=== PATIENT | female | born 1985 | race Caucasian/White ===

== ENCOUNTER 2017-01-02 07:19 | Emergency (ER) | payer BC ==
[~2017-01-02] VITALS: Ht 160 cm; Wt 84.1 kg
[2017-01-02 07:23] VITALS: TEMP 36.9; Ht 160 cm; Wt 84.1 kg
--- NOTE | 2017-01-02 07:50 | EMERGENCY ROOM VISIT NOTE ---
ED Visit Note First contact with patient: 07:28 CHIEF COMPLAINT: knee pain HISTORY OF PRESENT ILLNESS: This 31-year-old female patient presents to the emergency department ambulatory after sustaining an injury to the right knee when she was jumping on a trampoline and heard a very loud snap and had instant pain and swelling in the knee. The patient denies any other injuries besides their knee. The patient admits to swelling and bruising. There is pain diffusely over the knee but worse over the lateral aspect. They rate the pain as sharp and 8/10. The patient states they are not able to walk on it. No numbness or tingling. No previous injuries to this knee. No ankle, foot or hip pain. REVIEW OF SYSTEMS: A 6 system review of systems was completed with positives and pertinent negatives listed in the HPI. ALLERGIES: No known drug allergies MEDICATIONS: None PMH: None SOCIAL HISTORY: The patient lives locally with family PHYSICAL EXAM: Vital Signs: Reviewed Nurse's notes, vital signs stable. GENERAL : This is a 31-year-old female, no acute distress, but appears in pain, well- developed, well-nourished. MENTAL STATUS: Alert, oriented to person place and time, and cooperative. MUSCULOSKELETAL: The right knee is mildly swollen. There is minimal ecchymosis. There is moderate joint effusion present. The patient is tender over the anterior and posterior aspects. There is moderate joint line tenderness. The patella does not subluxate. Range of motion is intact. Strength of the quads and hamstrings is 5/5. Sarthak's is negative. Peewee's and Anterior Drawer tests are painful. There is pain with varus and valgus stressing. The foot and toes are warm and well-perfused. Dorsalis pedis pulse 2+. Sensation to pain and light touch is intact. Capillary refill less than 2 seconds. EMERGENCY DEPARTMENT COURSE: I examined the patient. X-rays of the right knee were reviewed by myself and read by radiology and reveal no fracture or dislocation. The patient was placed in a knee immobilizer under my direction and the position was satisfactory. The patient was instructed on the use of crutches. The patient was discharged home in good condition. The patient sustained a knee injury yesterday. I suspect that the patient has an underlying ligamentous injury. An x-ray was negative for obvious fracture. The patient was under the impression that she could have an emergent MRI of her knee performed. She states that she contacted the Hospital and was told that MRIs are available at this hospital at all times if deemed appropriate. I did advise the patient that although this is true, an emergent MRI may not be appropriate in this case. I advised her that even if we do discover a torn ligament she will not likely have emergency surgery. I advised her that because it would not change her treatment outcome it would be unlikely that her insurance would pay for an emergent MRI. I did offer to order the MRI but could not guarantee her insurance would cover it. She denied going any further at this time. She was given the information for orthopedics and was encouraged to contact their office to schedule a follow-up appointment. She initially declined any pain medication but just prior to discharge she did request pain medication. She was given one Coleharbor and a prescription for Coleharbor. DISCHARGE INSTRUCTIONS: Ice and elevate knee for swelling and pain. Wear knee immobilizer when up and about. Use crutches - minimal weight on foot. Ibuprofen 600 mg every 6 hrs for pain. Follow-up with Orthopedics for further evaluation and treatment - call for appointment. [~ rep ct add3]] RIGHT KNEE 3 VIEWS CLINICAL HISTORY: Right knee pain following injury. COMPARISON: None FINDINGS: Alignment of the right knee is anatomic. No acute fracture Is identified. There is a moderate size right knee joint effusion. There is mild spurring of the patella and the tibial tubercle at the origin and insertion of the patellar tendon. IMPRESSION: 1. No acute fracture. 2. Moderate right knee joint effusion. I reviewed the prescription drug monitoring website. The patient has not had recent narcotic prescriptions filled. Current/Historical Medications Scheduled PRN Hydrocodone/Acetaminophen 5MG/325MG (Coleharbor 5MG/325MG), 1 TABLET PO Q6 PRN for Pain Allergies Coded Allergies: No Known Allergies (Unverified , 01/02/17) Vital Signs Date Time Temp Pulse Resp B/P Pulse Ox O2 Delivery O2 Flow Rate FiO2 01/02/17 09:16 78 18 121/71 97 01/02/17 07:23 36.9 81 16 115/74 98 Room Air Medications Administered Medications (Trade) Dose Ordered Sig/Nithin Route Start Time Stop Time Status Last Admin Dose Admin Acetaminophen/ Hydrocodone Bitart (Coleharbor 5/325 Tab) 1 tab ONE STAT PO 01/02/17 08:59 2/20/17 09:00 DC 01/02/17 09:12 1 TAB Departure Information Impression Primary Impression: Internal derangement of knee Dispostion Home / Self-Care Condition GOOD Prescriptions Hydrocodone/Acetaminophen 5MG/325MG (Coleharbor 5MG/325MG) Tab 1 TABLET PO Q6 Y for Pain, #12 TAB For Initial Treatment Prov: Symone Jolly PA-C 01/02/17 Referrals Bradley Romo (PCP) Ahmet Perez, DO Patient Instructions ED Knee Injury Cruciate Ligament, ED Meniscal Injury Knee Poss, [facility] Additional Instructions Ice and elevate knee for swelling and pain. Wear knee immobilizer when up and about. Use crutches - minimal weight on foot. Ibuprofen 600 mg every 6 hrs for pain. Follow-up with Orthopedics for further evaluation and treatment - call for appointment. . Coleharbor 1 tablet every 6 hours if needed for worse pain. Do not drink or drive while taking Coleharbor and do not take with Tylenol. Work Instructions Return To Work: 3 days
--- NOTE | 2017-01-02 08:16 | DIAGNOSTIC IMAGING REPORT ---
RIGHT KNEE 3 VIEWS CLINICAL HISTORY: Right knee pain following injury. COMPARISON: None FINDINGS: Alignment of the right knee is anatomic. No acute fracture Is identified. There is a moderate size right knee joint effusion. There is mild spurring of the patella and the tibial tubercle at the origin and insertion of the patellar tendon. IMPRESSION: 1. No acute fracture. 2. Moderate right knee joint effusion. Electronically signed by: Naveed Cooper M.D. 01/02/2017 8:15 AM Dictated Date/Time: 01/02/2017 8:14 AM
[2017-01-02] MEDS ORDERED: HYDROCODONE/ACETAMOPHEN 5/325MG TAB PO STA (08:59)
[2017-01-02] MEDS ORDERED: HYDR-5688 PO (09:00)
[2017-01-02 09:16] VITALS: BP 121/71; PULSE 78; O2SAT 97
[2017-02-01] MEDS ORDERED: OXYC-57 PO (09:09)
[2017-02-01] MEDS ORDERED: KETO10TA PO (09:09)
== END 2017-01-02 09:18 | disposition home or self-care (01) ==
LOC: C.EDB 07:21 → C.EDA 09:18
DX: M23.91 Unspecified internal derangement of right knee (principal); X58.XXXA Exposure to other specified factors, initial encounter; Y93.44 Activity, trampolining

== ENCOUNTER → 2017-01-05 | Outpatient (CLI) | payer BC ==
[~2017-01-05] MED LIST: HYDR-5688 PO; KETO10TA PO; OXYC-57 PO
--- NOTE | 2017-01-05 18:04 | DIAGNOSTIC IMAGING REPORT ---
MRI THE RIGHT KNEE NO CONTRAST CLINICAL HISTORY: Right knee pain COMPARISON STUDY: Conventional radiographic study dated 01/02/2017 FINDINGS: Imaging was performed the sagittal, coronal, and axial planes. There is a small suprapatellar joint effusion. The patellar retinacular structures appear intact. The posterior cruciate ligament appears normal. The anterior cruciate ligament is torn. The medial and lateral collateral ligaments appear intact. There is marrow edema within the medial tibial plateau, consistent with a bone bruise. There is a very minimal impaction deformity involving the lateral femoral condyle with subchondral edema. There is a discoid lateral meniscus. No meniscal tears are visualized. IMPRESSION: 1. Minimal impaction deformity involving the lateral femoral condyle with subtle subchondral edema 2. Bone bruise involving the medial tibial plateau 3. Anterior cruciate ligament tear 4. Small joint effusion 5. Discoid lateral meniscus. No meniscal tears are visualized. Electronically signed by: Danie Hackett M.D. 01/05/2017 6:02 PM Dictated Date/Time: 01/05/2017 5:31 PM
== END | disposition home or self-care (01) ==
LOC: C.MRIBC 16:43
PROVIDERS: ATTEND Orthopaedic Surgery
DX: S83.511A Sprain of anterior cruciate ligament of right knee, initial encounter (principal); Q68.6 Discoid meniscus; X58.XXXA Exposure to other specified factors, initial encounter

== ENCOUNTER → 2017-02-01 | Day surgery (SDC) | payer BC ==
[2017-01-25 15:35] VITALS: Ht 161.3 cm; Wt 80.9 kg
[~2017-02-01] VITALS: Ht 161.3 cm; Wt 80.9 kg
[~2017-02-01] MED LIST changes: +ATROPINE SULFATE 0.1 MG/ML 5ML SYR IV PRN; +CEFAZOLIN 1000MG/55 ML D5W IV SCH; +CEFAZOLIN 2000 MG/60 ML D5W IV SCH; +CEFAZOLIN SOD 1 GM VIAL ONE; +CEFAZOLIN SOD 1000MG/55 ML D5W IV SCH; +DEXAMETHASONE SOD INJ 4 MG/ML VIAL ONE; +EpHEDrine SULFATE 50MG/5ML SYR ONE; +EpINEphrine INJ 1MG/ML AMP 1 MG/ML AMP ONE; +FENTANYL CITRATE INJ 50 MCG/1 ML 2 ML VIAL ONE; -HYDR-5688 PO; +HYDROmorphone INJ 1 MG/ML SYR ONE; +KETOROLAC TROMETHAMINE 30 MG/ML VIAL IV. PRN; +KETOROLAC TROMETHAMINE 30 MG/ML VIAL ONE; +LACTATED RINGER'S 1000ML 1,000 ML IV SCH; +LACTATED RINGER'S 1000ML 500 ML IV ONE; +LIDOCAINE HCL 2% 2 ML VIAL (20MG/ML) ONE; +MIDAZOLAM HCL 1 MG/ML 2ML VIAL ONE; +ONDANSETRON INJ 2 MG/ML 2 ML VIAL IV PRN; +ONDANSETRON INJ 2 MG/ML 2 ML VIAL ONE; +OXYCODONE/ACETAMINOPHEN 5-325 TAB PO PRN; +PROMETHAZINE HCL INJ 12.5 MG in SODIUM CHLORIDE 0.9% 50ML 50 ML IV PRN; +PROPOFOL IV EMULSION 10 MG/ML 20 ML VIAL IV ONE; +ROPIVACAINE 0.5% 5 MG/ML 30 ML VIAL ONE; +SODIUM CHLORIDE 0.9% 1000ML 1,000 ML IV SCH
--- NOTE | 2017-02-01 06:59 | History & Physical Bridge - SC ---
H&P Re-Evaluation Bridge Note: I have examined the patient, reviewed the History & Physical and in the interval since the performance of the History & Physical I have noted the following changes of clinical significance: No changes noted
--- NOTE | 2017-02-01 09:11 | Discharge Instructions-SurgCtr ---
Discharge Instructions Date of Service Feb 01, 2017. Visit Reason for Visit: Right Knee Pain, Joint Effusion Discharge Discharge Diagnosis / Problem: RIGHT ACL TEAR Discharge Goals Goal(s): Improve function, Therapeutic intervention Activity Recommendations Activity Limitations: per Instructions/Follow-up section Weightbearing Status: Right weightbearing (as tolerated WITH BRACE ) Anesthesia . Post Anesthesia Instructions: If you have had General Anesthesia or IV Sedation: * Do not drive today. * Resume driving when surgeon permits. * Do not make important decisions or sign legal documents today. * Call surgeon for: 1. Temperature elevations greater than 101 degrees F. 2. Uncontrollable pain. 3. Excessive bleeding. 4. Persistent nausea and vomiting. 5. Medication intolerance (nausea, vomiting or rash). * For nausea and vomiting use only clear liquids such as: tea, soda, bouillon until nausea subsides, then gradually increase diet as tolerated. * If you have any concerns or questions, call your surgeon's office. If physician is unavailable and it is an emergency, call 911 or go to the nearest emergency room. . Instructions / Follow-Up Instructions / Follow-Up MEDICATIONS: * Resume previous medications unless instructed otherwise by your surgeon. * Always take pain medication on a full stomach or with food to avoid upset stomach. * Do not drink alcohol or drive while taking narcotics. * Ibuprofen or Tylenol may be taken if narcotic not needed. NO IBUPROFEN WHILE TAKING TORADOL SPECIAL CARE INSTRUCTIONS: __ None X__ Keep extremity elevated and iced x 48 hours; apply ice 20-30 minutes 8-10 times/day. May remove at night. X__ Crutches __ May discard when able X__ Brace (REMOVE FOR THERAPY EXERCISES) __ 24 hrs/day __ Remove at night X__ Dressing __ Maintain until seen in office, may shower with plastic over site X__ Remove dressings in 24-48 hours and then may shower X__ Cover incisions with band-aids after showering X__ Do not remove steri-strips Call physician if chills or temperature rises above 102 degrees or pain unrelieved by prescribed pain medications. Office [phone] FOLLOW UP IN 2 WEEKS Diet Recommendations Home Diet: resume previous diet Procedures Procedures Performed: Right Knee Arthroscopy, Anterior Cruciate Ligament Reconstruction, Hamstring Autograft Pending Studies Studies pending at discharge: no Medical Emergencies . Who to Call and When: Medical Emergencies: If at any time you feel your situation is an emergency, please call 911 immediately. . Non-Emergent Contact Non-Emergency issues call your: Primary Care Provider, Surgeon . . "Provider Documentation" section prepared by Tj Curran.
[2017-02-01] MEDS: HYDROmorphone INJ 2 MG/ML SYR/VIAL IV PRN ×4 (09:17→09:46)
--- NOTE | 2017-02-01 09:51 | OPERATIVE REPORT ---
DATE OF OPERATION: 02/01/2017 PREOPERATIVE DIAGNOSIS: 1. Right anterior cruciate ligament tear. 2. 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 POSTOPERATIVE DIAGNOSIS: 1. Right knee anterior cruciate ligament tear. 2. Intact discoid meniscus. PROCEDURE PERFORMED: 1. Right knee exam under anesthesia. 2. Right knee diagnostic arthroscopy. 3. Right knee arthroscopic ACL reconstruction with 7.5 mm/8 mm semitendinosis/gracilis autograft. SURGEON: Rohan Eller M.D. AUTOMOTIVE SALES SPECIALIST: Tj Curran PA-C. COMPLICATIONS: None. ESTIMATED BLOOD LOSS: Minimal. TOURNIQUET TIME: 66 minutes at 300 mmHg. ANESTHESIA: General. SPECIMENS: None. OPERATIVE INDICATIONS: The patient is a 31-year-old very active female who injured her knee on a trampoline accident over a month ago. She was seen in clinic and diagnosed with an ACL tear which was confirmed by MRI. She also had a discoid meniscus. The patient elected to proceed with surgical treatment. OPERATIVE FINDINGS: Examination under anesthesia of the right knee revealed just a trace effusion. Range of motion is full extension to 135 degrees of flexion. She had a positive Peewee, negative anterior drawer, negative posterior drawer, no varus or valgus instability. Laura was negative for mechanical symptoms. Examination under anesthesia of the right knee revealed just a trace knee effusion. Range of motion 0-135. She had a positive Peewee, negative anterior drawer, negative posterior drawer. No varus or valgus instability. Laura's was negative. There was no posterolateral rotatory instability. ARTHROSCOPIC FINDINGS: Arthroscopic findings revealed a complete ACL tear near the proximal origin but not directly off the wall. The PCL was intact. The patella and trochlear cartilage was pretty normal. In the medial compartment, the articular surface of the meniscus was normal. In the lateral compartment, there was a discoid meniscus. There was no tear in the meniscus. The articular surface looked well preserved. OPERATIVE PROCEDURE: The patient was taken to the operating room, identified and placed on the operating table in supine position. All contact areas were appropriately padded. IV antibiotics were provided by the anesthesia team. An adductor canal block had been provided in the holding area. General anesthetic was implemented. A right thigh tourniquet was then placed. The right knee was then examined under anesthesia with findings as described above. The right leg was then prepped and draped in the usual sterile fashion. The right leg was elevated and exsanguinated with Esmarch and tourniquet was placed at 300 mmHg. An anteromedial incision was made directly over the pes tendons. Sharp dissection was carried out through the subcutaneous tissues directly down to the sartorius fascia. Sartorius fascia was incised longitudinally in line with skin incision. The hamstring tendons were then taken sharply off the anterior face of the tibia. Each tendon was then isolated and #2 Tycron whipstitch was placed in the end of each tendon. Each tendon was then harvested and taken to the back table and cut to 21 cm in length. The muscle was stripped off the opposite end of the tendon. A similar #2 Ticron whipstitch was placed in the opposite end of the tendon. The tendons were folded over. The femoral side fit through a 7.5 tunnel and the tibial side through an 8. The graft was tensioned on the graft board at 10 pounds of tension until ready for implantation. During graft preparation, routine right knee arthroscopy was then performed through typical anteromedial and anterolateral portals. Supralateral outflow portal was established for outflow. The remnant of the ACL was excised. A moderate sized notchplasty was performed. I then examined the menisci and no meniscal work was needed. I did examine the discoid meniscus. There was a popliteal hiatus but the meniscus itself was stable and the articular surface surface was well preserved. We elected to leave this alone. Attention was then drawn to the ACL reconstruction. With the use of the tibial guide set at 50 degrees, a guidewire was placed in the area of proposed tibial tunnel. It was overdrilled with an 8 mm solid reamer. Tunnel was cleaned of all debris. A 6 mm over the top guide was then used to initially place the femoral tunnel. It seemed a little bit posterior, so I did redrill this with a 7 mm over the top guide. I then overdrilled this with an Endobutton drill bit. The tunnel length measured about 35 mm. We then overdrilled this with a 7 mm acorn drill bit and it looked like we went out the lateral cortex. Therefore we decided to use the Xtendobutton device. The tunnel length measured a total of about 35 mm. The tunnel was cleaned of all debris. The 10 mm Endobutton was selected. The Endobutton was placed inside of an Xtendobutton and then the graft was placed through the 10 mm loop. A Beath pin was used to pass the graft through the tibial tunnel up into the femoral tunnel. The Endobutton/Xtendobutton was then flipped. The knee was cycled several times. There was 25 mm of graft in the tunnel. The knee was brought out into full extension and there was no impingement. The graft was then tensioned at 30 pounds. The tibial tunnel was dilated. A small Bio-Intrafix sheath was then placed followed by a 6.8 Biocryl Intrafix screw. This provided excellent fixation. The knee was examined. There was no Peewee and no pivot. The scope was placed back in the knee and the graft was appropriately tensioned in flexion and extension. The knee was debrided of all extraneous tissue. The portal sites were closed with 3-0 Prolene suture. The graft was cut short at the exit point. The sartorius fascia was repaired with 0 Vicryl suture in a [id number] fashion. The knee was injected with 30 mL of 0.5% ropivacaine with epinephrine and 30 mg of Toradol. The tourniquet was then let down for final tourniquet time of 66 minutes. The wound was once again irrigated. The subcutaneous tissues were then closed with 2-0 Dexon suture in a buried interrupted fashion. Skin was closed with 3-0 Prolene suture in a subcuticular fashion. The leg was then cleaned and dried and a sterile dressing with Steri-Strips, Xeroform, 4 x 4s, sterile cast padding, Félix bandage, cold pack and knee immobilizer applied. The patient then brought out of general anesthesia and transferred to the recovery room in stable condition. The patient tolerated the procedure with no complications. All needle and sponge counts were correct at the end of the operation. I attest to the content of the Intraoperative Record and any orders documented therein. Any exceptions are noted below. FRANKLIND
[2017-02-01 09:59] VITALS: TEMP 36.5
[2017-02-01 10:39] VITALS: BP 126/74; PULSE 89; O2SAT 96
--- NOTE | 2017-02-01 10:59 | Anesthesia Progress Nt - [facility] ---
Anesthesia Post Op Note Date & Time Feb 01, 2017 at 10:59 Vital Signs Vital Signs Past 12 Hours Date Time Temp Pulse Resp B/P Pulse Ox O2 Delivery O2 Flow Rate FiO2 02/01/17 10:39 89 16 126/74 96 Room Air 02/01/17 09:59 36.5 87 16 123/82 98 Room Air 02/01/17 09:50 122/86 02/01/17 09:47 37.0 99 Room Air 02/01/17 09:46 67 16 02/01/17 09:46 71 16 99 02/01/17 09:45 116/78 02/01/17 09:41 86 17 97 02/01/17 09:41 89 17 02/01/17 09:40 121/85 02/01/17 09:36 88 12 99 02/01/17 09:36 86 12 02/01/17 09:35 130/85 02/01/17 09:31 84 21 02/01/17 09:31 83 21 98 02/01/17 09:30 133/77 02/01/17 09:26 71 12 100 02/01/17 09:26 72 12 02/01/17 09:25 122/77 02/01/17 09:21 59 15 100 02/01/17 09:21 64 15 02/01/17 09:20 120/67 02/01/17 09:16 88 20 02/01/17 09:16 86 20 100 02/01/17 09:15 114/76 02/01/17 09:11 89 13 02/01/17 09:11 91 13 100 02/01/17 09:10 114/77 02/01/17 09:06 36.6 89 16 113/76 100 Mask 6 02/01/17 09:06 94 15 02/01/17 09:06 94 15 113/76 99 02/01/17 07:15 76 16 105/66 100 Diffusion Mask 5 02/01/17 07:05 72 16 118/76 97 Diffusion Mask 5 02/01/17 06:28 36.7 83 16 102/75 97 Room Air Notes Mental Status: alert / awake / arousable, participated in evaluation Pt Amnestic to Procedure: Yes Nausea / Vomiting: adequately controlled Pain: adequately controlled Airway Patency, RR, SpO2: stable & adequate BP & HR: stable & adequate Hydration State: stable & adequate Anesthetic Complications: no major complications apparent
== END | disposition home or self-care (01) ==
LOC: X.SURG 06:11
PROVIDERS: ATTEND Orthopaedic Surgery Sports Medicine
DX: S83.501A Sprain of unspecified cruciate ligament of right knee, initial encounter (principal); S83.281A Other tear of lateral meniscus, current injury, right knee, initial encounter; X58.XXXA Exposure to other specified factors, initial encounter; Y93.44 Activity, trampolining; Y92.89 Other specified places as the place of occurrence of the external cause; Y99.8 Other external cause status